=== PATIENT | female | born 1985 | race Caucasian/White ===

== ENCOUNTER 2019-03-13 19:11 | Emergency (ER) | payer SELFPAY ==
[2019-03-13 19:53] LABS: Absolute Lymphocytes (CBC) 0.8 K/uL (0.7-4.9); Absolute Monocytes 0.3 K/uL (0.1-1.3); Absolute Neutrophil 7.9 K/uL (1.8-8.0); Basophils % 0.5 % (0-1.3); Eosinophils % 0.8 % (0-4.4); Hematocrit 42.8 % (36.0-45.0); Lymphocytes % 8.9 % (15.3-44.8); MPV 7.4 fL (7.6-11.3); Monocytes % 3.6 % (3.3-12.3); RBC Red Blood Cell Count 4.68 M/uL (3.86-4.86)
[2019-03-13] MEDS ORDERED: KETOROLAC 30 MG/ML INJ ONE (20:00)
[2019-03-13] MEDS ORDERED: NA CHLORIDE 0.9% 1,000 ML ONE (20:01)
[2019-03-13 20:10] LABS: ALT/SGPT 24 U/L (12-78); AST/SGOT 8 U/L (15-37); Albumin 3.1 g/dL (3.4-5.0); Alkaline Phosphatase 51 U/L (45-117); BUN Blood Urea Nitrogen 14 mg/dL (7-18); Bicarbonate 24 mmol/L (21-32); Bilirubin Direct 0.1 mg/dL (0-0.2); Bilirubin Total 0.5 mg/dL (0.2-1.0); Glucose Level 189 mg/dL (74-106); Lipase 105 U/L (73-393); Potassium 3.9 mmol/L (3.5-5.1); Protein, Total 7.2 g/dL (6.4-8.2); Sodium Level 140 mmol/L (136-145)
[2019-03-13 20:21] LABS: Urine Blood 1+ (NEG); Urine Glucose NEGATIVE (NEG); Urine Protein 1+ (NEG); Urine Specific Gravity >1.030 (1.005-1.030); Urine pH 5.5 (5.0-7.0)
[2019-03-13 20:23] LABS: Blood Morphology Comment NOTED (NOT SEEN); Platelet Estimate ADEQ; Target Cells FEW; Urine White Blood Cell Casts OK
[2019-03-13 20:40] LABS: Urine Bacteria 20-50 /HPF (<20); Urine Culture Reflex Order REFLEXED; Urine Mucus 1+ /HPF (NONE SEEN); Urine RBC NONE SEEN /HPF (NONE SEEN)
--- NOTE | 2019-03-13 20:46 | RAD REPORT ---
EXAM DESCRIPTION: CT - Abdomen Pelvis W Contrast - 03/13/2019 8:23 pm CLINICAL HISTORY: Abdominal pain/diarrhea COMPARISON: 2006 TECHNIQUE: Computed axial tomography of the abdomen pelvis was obtained. 100 cc Isovue-300 was admin istered intravenously. Oral contrast was not requested which limits evaluation of bowel. All CT scans are performed using dose optimization technique as appropriate and may include automated exposure control or mA/KV adjustment according to patient size. FINDINGS: Fatty liver. Liver is enlarged. Cholecystectomy Spleen, pancreas, adrenal and left kidney appear unremarkable. 2 millimeter nonobstructing right renal calculus There is no evidence of diverticulitis. 2 centimeter right ovarian cyst without significant free fluid IMPRESSION: Small nonobstructing right renal calculus Moderate hepatomegaly 2 centimeter right ovarian cyst without significant free fluid
--- NOTE | 2019-03-13 21:42 | EDPHYS ---
Physician Documentation [facility] Name: Elías Bella Age: 33 yrs Sex: Female : 1985 Arrival Date: 03/13/2019 Time: 19:12 Bed 13 Private MD: ED Physician Edward Bhagat HPI: 03/13 21:14 This 33 yrs old Female presents to ER via Ambulatory with complaints of tw4 Abdominal Pain. 21:14 The patient presents with abdominal pain. Onset: The symptoms/episode began/occurred tw4 today, 4 hour(s) ago. The symptoms do not radiate. Associated signs and symptoms: none. The symptoms are described as sharp. Modifying factors: The symptoms are alleviated by remaining still, the symptoms are aggravated by movement. Severity of pain: At its worst the pain was moderate. The patient has not experienced similar symptoms in the past. 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 - Social history:: Smoking status: Patient uses tobacco products, smokes two packs cigarettes per day. - Ebola Screening: : Patient negative for fever greater than or equal to 101.5 degrees Fahrenheit, and additional compatible Ebola Virus Disease symptoms Patient denies exposure to infectious person Patient denies travel to an Ebola-affected area in the 21 days before illness onset No symptoms or risks identified at this time. ROS: 21:19 Constitutional: Negative for fever, chills, and weight loss, Eyes: Negative for injury, tw4 pain, redness, and discharge, Cardiovascular: Negative for chest pain, palpitations, and edema, Respiratory: Negative for shortness of breath, cough, wheezing, and pleuritic chest pain, Back: Negative for injury and pain, MS/Extremity: Negative for injury and deformity, Skin: Negative for injury, rash, and discoloration, Neuro: Negative for headache, weakness, numbness, tingling, and seizure. 21:19 Abdomen/GI: Positive for abdominal pain, nausea and vomiting, Negative for abdominal cramps, abdominal distension, anorexia, dysphagia, hematemesis, black/tarry stool, rectal pain. Exam: 21:19 Constitutional: This is a well developed, well nourished patient who is awake, alert, tw4 and in no acute distress. Head/Face: Normocephalic, atraumatic. Chest/axilla: Normal chest wall appearance and motion. Nontender with no deformity. No lesions are appreciated. Cardiovascular: Regular rate and rhythm with a normal S1 and S2. No gallops, murmurs, or rubs. Normal PMI, no JVD. No pulse deficits. Respiratory: Lungs have equal breath sounds bilaterally, clear to auscultation and percussion. No rales, rhonchi or wheezes noted. No increased work of breathing, no retractions or nasal flaring. Back: No spinal tenderness. No costovertebral tenderness. Full range of motion. MS/ Extremity: Pulses equal, no cyanosis. Neurovascular intact. Full, normal range of motion. Neuro: Awake and alert, GCS 15, oriented to person, place, time, and situation. Cranial nerves II-XII grossly intact. Motor strength 5/5 in all extremities. Sensory grossly intact. Cerebellar exam normal. Normal gait. 21:19 Abdomen/GI: Inspection: abdomen appears normal, Bowel sounds: normal, Palpation: moderate abdominal tenderness, in the right upper quadrant. Vital Signs: 19:21 BP 137 / 82; Pulse 105; Resp 20; Temp 98.5(O); Pulse Ox 97% on R/A; Weight 142.88 kg; ed1 Height 5 ft. 6 in. (167.64 cm); Pain 4/10; 20:41 BP 126 / 80; Pulse 90; Resp 17 S; Pulse Ox 98% on R/A; Pain 3/10; jd3 21:51 BP 127 / 77; Pulse 88; Resp 17 S; Pulse Ox 96% on R/A; Pain 3/10; jd3 19:21 Body Mass Index 50.84 (142.88 kg, 167.64 cm) ed1 MDM: 19:31 Patient medically screened. tw4 21:19 Data reviewed: vital signs, nurses notes. Data interpreted: color television console monitor: not tw4 applicable for this patient encounter. Counseling: I had a detailed discussion with the patient and/or guardian regarding: the historical points, exam findings, and any diagnostic results supporting the discharge/admit diagnosis, lab results, radiology results. Medication response: 21:40 Differential diagnosis: appendicitis, Ovarian Torsion, Pyelonephritis, tw4 Ureterolithiasis, urinary tract infection. Response to treatment: the patient's symptoms have markedly improved after treatment, and as a result, I will discharge patient. Special discussion: I discussed with the patient/guardian in detail that at this point there is no indication for admission to the hospital. It is understood, however, that if the symptoms persist or worsen the patient needs to return immediately for re-evaluation. Special discussion: Based on the patient's Hx, exam, and Dx evaluation, there is no indication for emergent surgery or inpatient Tx. It is understood by the patient/guardian that if the Sx's persist or worsen they need to return immediately for re-evaluation. 03/13 19:23 Order name: Basic Metabolic Panel; Complete Time: 21: [facility] 03/13 19:23 Order name: CBC with Diff; Complete Time: 21: [facility] 03/13 19:23 Order name: Creatinine for Radiology; Complete Time: 21: [facility] 03/13 19:23 Order name: Hepatic Function; Complete Time: 21: [facility] 03/13 19:23 Order name: Lipase; Complete Time: 21: [facility] 03/13 19:44 Order name: CT Abd/Pelvis - IV Contrast Only; Complete Time: 21: [facility] 03/13 19:57 Order name: CBC Smear Scan; Complete Time: 21: [facility] 03/13 20:06 Order name: Urine Dipstick--Ancillary (enter results); Complete Time: 21: [facility] 03/13 20:06 Order name: Urine --Ancillary (enter results); Complete Time: 21: [facility] 03/13 20:32 Order name: Urine Microscopic Only; Complete Time: 21: [facility] 03/13 20:43 Order name: Urine Culture [facility] 03/13 19:23 Order name: IV Saline Lock; Complete Time: 19:42 [facility] 03/13 19:23 Order name: Labs collected and sent; Complete Time: 19:42 tw4 03/13 19:43 Order name: Urine Test (obtain specimen); Complete Time: 20:03 tw4 Administered Medications: 19:50 Drug: NS 0.9% 1000 ml Route: IV; Rate: 1 bolus; Site: right antecubital; jd3 20:50 Follow up: Response: No adverse reaction; IV Status: Completed infusion; IV Intake: jd3 1000ml 19:51 Drug: TORadol 30 mg Route: IVP; Site: right antecubital; jd3 20:50 Follow up: Response: No adverse reaction jd3 Disposition: 03/13/19 21:41 Discharged to Home. Impression: Other ovarian cysts. - Condition is Stable. - Discharge Instructions: Ovarian Cyst. - Prescriptions for Ibuprofen 800 mg Oral Tablet - take 1 tablet by ORAL route every 12 hours As needed take with food; 20 tablet. Tylenol- Codeine #3 300-30 mg Oral Tablet - take 2 tablet by ORAL route every 6 hours As needed; 6 tablet. - Medication Reconciliation Form, Thank You Letter, Antibiotic Education, Prescription Opioid Use form. - Follow up: Private Physician; When: Upon discharge from the Emergency Department; Reason: If symptoms return, Recheck today's complaints, Continuance of care. - Problem is new. - Symptoms have improved. Signatures: Dispatcher [employer] [facility] Jessica Carrero RN RN ed1 Kam Mishra RN RN jd3 Edward Bhagat MD MD tw4 Corrections: (The following items were deleted from the chart) 20:23 19:45 URINALYSIS+U.LAB.BRZ ordered. [facility] 21:54 21:41 03/13/2019 21:41 Discharged to Home. Impression: Other ovarian cysts. Condition jd3 is Stable. Forms are Medication Reconciliation Form, Thank You Letter, Antibiotic Education, Prescription Opioid Use. Follow up: Private Physician; When: Upon discharge from the Emergency Department; Reason: If symptoms return, Recheck today's complaints, Continuance of care. Problem is new. Symptoms have improved. tw4
--- NOTE | 2019-03-13 21:42 | ER ---
Nurse's Notes [facility] Name: Elías Bella Age: 33 yrs Sex: Female : 1985 Arrival Date: 03/13/2019 Time: 19:12 Bed 13 Private MD: Diagnosis: Other ovarian cysts Presentation: 03/13 19:18 Presenting complaint: Patient states: Around 1 I started having abdominal pain and ed1 nausea. Transition of care: patient was not received from another setting of care. Onset of symptoms was March 13, 2019 at 15:00. Risk Assessment: Do you want to hurt yourself or someone else? Patient reports no desire to harm self or others. Initial Sepsis Screen: Does the patient meet any 2 criteria? No. Patient's initial sepsis screen is negative. Does the patient have a suspected source of infection? No. Patient's initial sepsis screen is negative. Care prior to arrival: None. 19:18 Method Of Arrival: Ambulatory ed1 19:18 Acuity: LAURA 3 ed1 Triage Assessment: 19:21 General: Appears uncomfortable, Behavior is calm, cooperative. Pain: Complains of pain ed1 in abdomen Pain radiates to back Pain currently is 4 out of 10 on a pain scale. at worst was 8 out of 10 on a pain scale. GI: Reports diarrhea, nausea. 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 - Social history:: Smoking status: Patient uses tobacco products, smokes two packs cigarettes per day. - Ebola Screening: : Patient negative for fever greater than or equal to 101.5 degrees Fahrenheit, and additional compatible Ebola Virus Disease symptoms Patient denies exposure to infectious person Patient denies travel to an Ebola-affected area in the 21 days before illness onset No symptoms or risks identified at this time. Screenin:27 Abuse screen: Denies threats or abuse. Nutritional screening: No deficits noted. jd3 Tuberculosis screening: No symptoms or risk factors identified. Fall Risk Ambulatory Aid- None/Bed Rest/Nurse Assist (0 pts). Gait- Normal/Bed Rest/Wheelchair (0 pts) Mental Status- Oriented to own ability (0 pts). Total Mathew Fall Scale indicates No Risk (0-24 pts). Assessment: 19:45 General: Appears in no apparent distress. uncomfortable, Behavior is calm, cooperative, jd3 appropriate for age. Pain: Complains of pain in back and abdomen Quality of pain is described as pressure, sharp, tender. Neuro: Level of Consciousness is awake, alert, obeys commands, Oriented to person, place, time, situation, Appropriate for age. Cardiovascular: Capillary refill < 3 seconds Patient's skin is warm and dry. Respiratory: Airway is patent Respiratory effort is even, unlabored, Respiratory pattern is regular, symmetrical. GI: Abdomen is round non-distended, Bowel sounds present X 4 quads. Abd is soft X 4 quads Abdomen is tender to palpation in right lower quadrant Reports diarrhea, nausea. : No signs and/or symptoms were reported regarding the genitourinary system. EENT: No signs and/or symptoms were reported regarding the EENT system. Derm: Skin is intact, Skin is dry, Skin is normal, Skin temperature is warm. Musculoskeletal: Circulation, motion, and sensation intact. Range of motion: intact in all extremities. 20:26 Reassessment: Patient appears in no apparent distress at this time. No changes from jd3 previously documented assessment. Patient is alert, oriented x 3, equal unlabored respirations, skin warm/dry/pink. 20:41 Reassessment: Patient appears in no apparent distress at this time. Patient and/or jd3 family updated on plan of care and expected duration. Pain level reassessed. Patient is alert, oriented x 3, equal unlabored respirations, skin warm/dry/pink. reports pain sensation is better, but still pressure in the abdomen, provider notified. 21:51 Reassessment: Patient appears in no apparent distress at this time. Patient and/or jd3 family updated on plan of care and expected duration. Pain level reassessed. Patient is alert, oriented x 3, equal unlabored respirations, skin warm/dry/pink. Patient states feeling better. Vital Signs: 19:21 BP 137 / 82; Pulse 105; Resp 20; Temp 98.5(O); Pulse Ox 97% on R/A; Weight 142.88 kg; ed1 Height 5 ft. 6 in. (167.64 cm); Pain 4/10; 20:41 BP 126 / 80; Pulse 90; Resp 17 S; Pulse Ox 98% on R/A; Pain 3/10; jd3 21:51 BP 127 / 77; Pulse 88; Resp 17 S; Pulse Ox 96% on R/A; Pain 3/10; jd3 19:21 Body Mass Index 50.84 (142.88 kg, 167.64 cm) ed1 ED Course: 19:12 Patient arrived in ED. mr 19:19 Triage completed. ed1 19:21 Edward Bhagat MD is Attending Physician. tw4 19:21 Arm band placed on right wrist. ed1 19:32 Kam Mishra, RN is Primary Nurse. jd3 19:45 Radiology exam delayed due to lab results not completed at this time. (BUN/Creatinine) sj IV insertion attempt and/or patient not having appropriate IV at this time. 19:45 Inserted saline lock: 20 gauge in right antecubital area, using aseptic technique. jd3 Blood collected. 20:02 Radiology exam delayed due to lab results not completed at this time. (BUN/Creatinine). sj 20:[address] via wheelchair. sj 20:23 CT completed. Patient tolerated procedure well. Patient moved back from CT. sj 20:24 CT Abd/Pelvis - IV Contrast Only In Process Unspecified. EDMS 20:27 Patient has correct armband on for positive identification. Bed in low position. Call jd3 light in reach. Side rails up X 1. 21:52 No provider procedures requiring assistance completed. IV discontinued, intact, jd3 bleeding controlled, No redness/swelling at site. Pressure dressing applied. Administered Medications: 19:50 Drug: NS 0.9% 1000 ml Route: IV; Rate: 1 bolus; Site: right antecubital; jd3 20:50 Follow up: Response: No adverse reaction; IV Status: Completed infusion; IV Intake: jd3 1000ml 19:51 Drug: TORadol 30 mg Route: IVP; Site: right antecubital; jd3 20:50 Follow up: Response: No adverse reaction jd3 Intake: 20:50 IV: 1000ml; Total: 1000ml. jd3 Outcome: 21:41 Discharge ordered by . tw4 21:52 Discharged to home ambulatory, with friend. jd3 21:52 Condition: stable 21:52 Discharge instructions given to patient, friend, Instructed on discharge instructions, follow up and referral plans. medication usage, Demonstrated understanding of instructions, follow-up care, medications, Prescriptions given X 2. 21:54 Patient left the ED. jd3 Signatures: Dispatcher [employer] EDOR Isidro, Reta Ayoub, Jessica Vega, RN RN ed1 Kam Mishra RN RN [email or web address] Edward Bhagat MD MD tw4 Corrections: (The following items were deleted from the chart) 20:10 19:49 Inserted saline lock: 20 gauge in right antecubital area, using aseptic jd3 technique. Blood collected. jd3
[2019-03-14 00:19] VITALS: TEMP 98.5
[2019-03-14 00:22] VITALS: BP 127/77; O2SAT 96
== END 2019-03-13 21:54 | disposition home or self-care (01) ==
LOC: ER 19:11
DX: N83.299 Other ovarian cyst, unspecified side (principal); E11.9 Type 2 diabetes mellitus without complications; F17.210 Nicotine dependence, cigarettes, uncomplicated
CPT/HCPCS: 36415; 74177; 80048; 80076; 81003; 81015; 81025; 83690; 85025; 87086; 87088; 96361; 96374; 99284; J7030; Q9967